=== PATIENT | female | born 1985 | race African-American/Black ===

== ENCOUNTER → 2016-08-13 | Outpatient (CLI) | payer OTHER ==
[2016-08-13 14:00] LABS: BASO % 0.2 % (0.0-1.0); EOS # 0.1 K/mm3 (0.0-0.50); LARGE UNSTAINED CELL # 0.1 K/mm3 (0.0-0.4); LARGE UNSTAINED CELL % 1.8 % (0.0-4.0); LYMPH # 1.6 K/mm3 (1.5-6.5); LYMPH % 20.3 % (24.0-44.0); MEAN CORPUSCULAR HEMOGLOBIN 24.9 pg (27.0-33.0); MEAN CORPUSCULAR HGB CONC 30.8 g/dl (32.0-36.5); MEAN CORPUSCULAR VOLUME 80.9 fl (80.0-96.0); MONO # 0.4 K/mm3 (0.0-0.8); MONO % 5.2 % (0.0-5.0); NEUTROPHILS # 5.5 K/mm3 (1.8-7.7); NEUTROPHILS % 71.5 % (36.0-66.0); PLATELET COUNT, AUTOMATED 201 k/mm3 (150-450); RED CELL DISTRIBUTION WIDTH 12.8 % (11.5-14.5); WHITE BLOOD COUNT 7.6 K/mm3 (4.0-10.0)
== END ==
LOC: M SMT 10:56
PROVIDERS: ATTEND Advanced Practice Midwife
DX: Z34.83 Encounter for supervision of other normal pregnancy, third trimester (principal); Z36 Encounter for antenatal screening of mother; Z3A.00 Weeks of gestation of pregnancy not specified

== ENCOUNTER → 2016-08-27 | Outpatient (REF) | payer OTHER | LOC: M LAB REF 12:51 | PROVIDERS: ATTEND Advanced Practice Midwife | DX: Z34.03 Encounter for supervision of normal first pregnancy, third trimester (principal) ==

== ENCOUNTER 2016-09-15 15:38 | Inpatient (IN) | payer OTHER ==
[~2016-09-15] VITALS: Ht 165.1 cm; Wt 99.0 kg
[2016-09-15] VITALS (10 sets, daily range): BP systolic 114–143; BP diastolic 68–91
--- NOTE | 2016-09-15 16:40 | HPE ---
DATE OF ADMISSION: 09/15/2016 Maryann is a 31-year-old, 2, para 0-0-1-0, at 39 weeks gestation, with an estimated date of confinement (EDC) of 09/22/2016, based on last normal period and confirmed by first trimester ultrasound. She presents to labor and delivery today per consult with Dr. Jamin Parish for induction of labor due to preeclampsia. She denies regular contractions. She denies vaginal bleeding and leakage of fluid. The fetus is active. She denies headache, visual disturbances, epigastric pain, and right upper quadrant discomfort. care was initiated at [facility] in the first trimester. course complicated with diagnosis of preeclampsia. She had two elevated blood pressures within the same week, at least 4 hours apart, that were abnormal. She underwent a preeclamptic profile and CBC. Her uric acid is elevated at 6.6 and a 24-hour urine for protein at 492.7. Liver enzymes are normal. Hemoglobin, hematocrit, and platelets are in normal range. OBSTETRICAL HISTORY: March 2014 she had a spontaneous . OBSTETRICAL LABORATORY DATA: Blood type is O positive, antibody screen negative, Rubella immune, VDRL is nonreactive. Urine culture no growth. Hepatitis B surface antigen negative. HIV negative. Hepatitis C antibody nonreactive. She had a positive chlamydia that was treated and then a [id number] on 03/24/2016 that was negative. Gestational diabetic screening normal at 120. Her GBS is negative. She also underwent a hemoglobin electrophoresis and was found to have normal adult hemoglobin due to family history of sickle cell. SURGERIES: None. FAMILY HISTORY: Hypertension, sickle cell, mental retardation. SOCIAL HISTORY: The patient is . The father of the baby is at bedside and supportive. She is a nonsmoker. Denies alcohol and drug use. 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 She did not, however, start prophylactic antivirals, however denies any signs or symptoms of an outbreak and it has been over a year since an outbreak. She does have a history of childhood varicella. Denies history of abuse, physical, sexual, and emotional. ALLERGIES: No known drug allergies. CURRENT MEDICATIONS: Include: - vitamin OBJECTIVE: Temperature 98, pulse 80, respirations 20, blood pressure 133/86 upon arrival to labor and delivery. She is alert and oriented times three, in no apparent distress. heart rate is 140 with moderate variability, positive accelerations, there is an occasional variable deceleration observed. There is no pattern of regular contractions. Her abdomen is gravid, cephalic presentation, estimated weight is 7-1/2 pounds. Sterile vaginal exam: Finger tip dilated, thick, -3 station, posterior and soft. No bloody show with exam. The patient has a difficult time tolerating vaginal exam, reports a history of always having difficulties and discomfort with vaginal exams and intercourse. She does have a trace protein in her urine dip upon presentation to labor and delivery as well today. Of note I did examine the patient, there is no signs or symptoms of a HSV-2 outbreak. No lesions seen or observed. ASSESSMENT: Intrauterine at 39 weeks gestation. heart rate category 2. Preeclampsia. PLAN: Per consult with Dr. Jamin Parish, admit patient to labor and delivery. Labs, including repeat preeclamptic profile. Out of bed ad abdelrahman. Saline lock. Start misoprostol 50 mcg by mouth every 4 hours for cervical ripening. The patient does desire an epidural when she is in an active labor. I did review risks related to induction of labor, including, but not limited to, failed induction, increased risk for section, intolerance to labor. All of the patient and her 's questions have been answered and they do understand and desire to proceed with induction. I do anticipate cervical ripening. Will consider Huber bulb insertion if patient can tolerate procedure. GORDY
[2016-09-15] MEDS: miSOPROStol 50 MCG 1/2 TAB (S0191) PO SCH ×2 (16:57→21:14)
[2016-09-15 16:59] LABS: MEAN CORPUSCULAR HEMOGLOBIN 23.7 pg (27.0-33.0); MEAN CORPUSCULAR HGB CONC 30.7 g/dl (32.0-36.5); MEAN CORPUSCULAR VOLUME 77.4 fl (80.0-96.0); RED CELL DISTRIBUTION WIDTH 14.2 % (11.5-14.5); WHITE BLOOD COUNT 6.3 K/mm3 (4.0-10.0)
[2016-09-15 17:21] LABS: ALT/SGPT 19 U/L (12-78); AST/SGOT 21 U/L (15-37); BILIRUBIN,TOTAL 0.2 MG/DL (0.2-1.0); CREATININE FOR GFR 0.78 MG/DL (0.55-1.02); GLOMERULAR FILTRATION RATE > 60.0 (>60); URIC ACID 6.2 MG/DL (2.6-6.0)
[2016-09-15] MEDS ORDERED: diphenhydrAMINE 50 MG CAP PO ONE (22:00)
[2016-09-16] VITALS (49 sets, daily range): BP systolic 102–152; BP diastolic 55–98
[2016-09-16] MEDS: miSOPROStol 50 MCG 1/2 TAB (S0191) PO SCH ×2 (01:23→05:26)
[2016-09-16] MEDS ORDERED: OXYTOCIN 30 UNITS IN 0.9% NaCl 500ML IV BAG (J2590) As Ordered ONE (10:01)
[2016-09-16] MEDS: LR 1,000 ML IV SCH ×2 (10:10→18:14)
[2016-09-16] MEDS: OXYTOCIN DRIP 30 UNITS in APPROPRIATE DILUENT 1 EA IV SCH (10:10)
[2016-09-16 18:29] LABS: MEAN CORPUSCULAR HGB CONC 30.5 g/dl (32.0-36.5); MEAN CORPUSCULAR VOLUME 78.4 fl (80.0-96.0); RED CELL DISTRIBUTION WIDTH 14.3 % (11.5-14.5)
[2016-09-16] MEDS ORDERED: FENTANYL 2MCG/ML ROPIVACAINE 0.2% IN 0.9% NACL 200ML IVBAG As Ordered ONE (19:13)
[2016-09-16] MEDS ORDERED: REFRIGERATOR IV KEYS XX PRN (20:00)
[2016-09-16] MEDS ORDERED: ONDANSETRON 4MG/2ML VIAL (J2405) IV PRN (20:00)
[2016-09-16] MEDS ORDERED: LACTATED RINGER'S 1000 ML IV PRN (20:00)
[2016-09-16] MEDS ORDERED: EPIDURAL/PCA KEYS XX PRN (20:00)
[2016-09-16] MEDS ORDERED: diphenhydrAMINE INJ 50MG/ML VIAL (J1200) IV PRN (20:00)
[2016-09-16] MEDS ORDERED: NALOXONE INJ 0.4 MG/1 ML VIAL (J2310) IV PRN (20:00)
[2016-09-16] MEDS ORDERED: EPIDURAL COMMENT XX SCH (20:00)
[2016-09-16] MEDS ORDERED: FENTANYL/ROPIVACAINE/NACL BAG 200 ML EPIDURAL SCH (20:00)
[2016-09-16] MEDS ORDERED: ePHEDrine SULFATE 25 MG/5 ML(5MG/ML) SYRINGE IV PRN (20:00)
[2016-09-17] VITALS (70 sets, daily range): BP systolic 107–171; BP diastolic 53–83
[2016-09-17] MEDS: LR 1,000 ML IV SCH ×3 (01:59→17:44)
[2016-09-17] MEDS ORDERED: ACETAMINOPHEN 500 MG TAB PO PRN (08:00)
[2016-09-17] MEDS ORDERED: ADACEL/BOOSTRIX VACCINE (DIPHTH/PERTUSS/ACELL/TETANUS)0.5ML SYR (90715) IM ONE (09:00)
[2016-09-17] MEDS ORDERED: OXYTOCIN 30 UNITS IN 0.9% NaCl 500ML IV BAG (J2590) As Ordered ONE (14:33)
[2016-09-17] MEDS: OXYTOCIN DRIP 30 UNITS in APPROPRIATE DILUENT 1 EA IV SCH (14:36)
[2016-09-17] MEDS ORDERED: LACTATED RINGER'S 1000 ML IV STA (16:02)
[2016-09-17] MEDS ORDERED: UNASYN 3 GM VIAL As Ordered ONE (16:02)
[2016-09-17] MEDS ORDERED: BICITRA 30ML SOLN UDC PO ONE (16:15)
[2016-09-17] MEDS ORDERED: AMPICILLIN SOD/SULBACTAM SOD 3 GM in D5W MINI-BAG PLUS 100 ML IV ONE (16:15)
[2016-09-17] MEDS ORDERED: LIDOCAINE 2% W/EPIN INJ 20ML **PRES FREE As Ordered ONE (16:41)
[2016-09-17] MEDS ORDERED: OXYTOCIN INJ 10 UNITS/ML VIAL (J2590) As Ordered ONE ×4 (16:41→17:21)
[2016-09-17] MEDS ORDERED: MORPHINE PRES-FREE INJ 10 MG/10 ML VIAL (J2274) As Ordered ONE (16:55)
[2016-09-17] MEDS ORDERED: KETOROLAC 60 MG/2 ML VIAL (J1885) As Ordered ONE (16:57)
[2016-09-17] MEDS ORDERED: NALBUPHINE HCL 10 MG/ML AMP (J2300) IV PRN ×2 (17:00→18:15)
[2016-09-17] MEDS ORDERED: NALOXONE INJ 0.4 MG/1 ML VIAL (J2310) IV PRN ×2 (17:00)
[2016-09-17] MEDS ORDERED: METOCLOPRAMIDE INJ 10MG/2ML VIAL (J2765) IV PRN (17:00)
[2016-09-17] MEDS ORDERED: ONDANSETRON 4MG/2ML VIAL (J2405) IV PRN ×3 (17:00→18:15)
[2016-09-17] MEDS ORDERED: MEPERIDINE 50 MG/ML 1ML VIAL (J2175) As Ordered ONE (17:01)
[2016-09-17 17:09] LABS: CORD GAS ABE V -4.9; CORD GAS HCO3 V 20.7 MEQ/L; CORD GAS PCO2 V 40.2 mmHg; CORD GAS PH V 7.329 UNITS; CORD GAS PO2 V 29.7 mmHg; CORD GAS SBC V 19.8 MEQ/L; CORD GAS TCO2 V 21.9 MEQ/L
[2016-09-17 17:11] LABS: CORD GAS ABE A -6.1; CORD GAS HCO3 A 21.5 MEQ/L; CORD GAS O2 SAT A 20.2 %; CORD GAS PCO2 A 50.2 mmHg; CORD GAS PH A 7.25 UNITS; CORD GAS SBC A 17.8 MEQ/L; CORD GAS TCO2 A 23.1 MEQ/L
[2016-09-17] MEDS ORDERED: OXYTOCIN DRIP 30 UNITS in APPROPRIATE DILUENT 1 EA IV SCH (17:44)
[2016-09-17] MEDS ORDERED: RHOGAM 300 MCG (1500 IU) INJ (J2790) IM SCH (17:45)
[2016-09-17] MEDS ORDERED: MEASLES,MUMPS,RUBELLA VACCINE INJ (MMR-II) (90707) SC SCH (17:45)
[2016-09-17] MEDS ORDERED: PROMETHAZINE 25 MG TAB PO PRN (17:45)
[2016-09-17] MEDS ORDERED: LR 1,000 ML IV SCH (18:15)
[2016-09-17] MEDS ORDERED: MEPERIDINE INJ 25 MG/ML VIAL (J2175) IV PRN (18:15)
[2016-09-17] MEDS ORDERED: HYDROmorphone HCL 1 MG/ML SYRINGE (J1170) IV PRN (18:15)
[2016-09-17] MEDS ORDERED: PERCOCET 5MG/325MG TAB PO PRN (18:15)
[2016-09-17] MEDS ORDERED: fentaNYL 100 MCG/2 ML INJECTION (J3010) IV PRN (18:15)
[2016-09-17] MEDS: PERCOCET 5MG/325MG TAB PO PRN (19:03)
[2016-09-17] MEDS: DOCUSATE SODIUM 100 MG CAP PO SCH (20:49)
[2016-09-17] MEDS: AMPICILLIN SOD/SULBACTAM SOD 3 GM in D5W MINI-BAG PLUS 100 ML IV SCH (22:02)
[2016-09-17] MEDS: KETOROLAC 30 MG/ML VIAL (J1885) IV SCH (22:57)
[2016-09-18] VITALS (9 sets, daily range): BP systolic 119–171; BP diastolic 62–97
[2016-09-18] MEDS: LR 1,000 ML IV SCH ×3 (01:44→17:44)
[2016-09-18] MEDS: AMPICILLIN SOD/SULBACTAM SOD 3 GM in D5W MINI-BAG PLUS 100 ML IV SCH ×4 (04:36→22:26)
[2016-09-18] MEDS: KETOROLAC 30 MG/ML VIAL (J1885) IV SCH ×3 (04:54→16:12)
[2016-09-18 07:18] LABS: MEAN CORPUSCULAR HEMOGLOBIN 24.2 pg (27.0-33.0); MEAN CORPUSCULAR HGB CONC 31.2 g/dl (32.0-36.5); MEAN CORPUSCULAR VOLUME 77.4 fl (80.0-96.0); RED CELL DISTRIBUTION WIDTH 14.5 % (11.5-14.5)
[2016-09-18] MEDS: PRENATAL VITAMIN TAB PO SCH (07:31)
[2016-09-18] MEDS: DOCUSATE SODIUM 100 MG CAP PO SCH ×2 (07:32→19:44)
[2016-09-18] MEDS: PERCOCET 5MG/325MG TAB PO PRN ×2 (07:38→19:44)
[2016-09-19] MEDS: IBUPROFEN 800 MG TAB PO SCH ×3 (00:40→16:30)
[2016-09-19 01:00] VITALS: BP 141/88
[2016-09-19] MEDS: LR 1,000 ML IV SCH ×2 (01:44→08:16)
[2016-09-19] MEDS: AMPICILLIN SOD/SULBACTAM SOD 3 GM in D5W MINI-BAG PLUS 100 ML IV SCH ×4 (04:29→21:39)
[2016-09-19] MEDS: PERCOCET 5MG/325MG TAB PO PRN ×2 (04:30→14:38)
[2016-09-19 05:40] VITALS: BP 124/69
[2016-09-19] MEDS: DOCUSATE SODIUM 100 MG CAP PO SCH ×2 (08:15→21:39)
[2016-09-19] MEDS: PRENATAL VITAMIN TAB PO SCH (08:15)
[2016-09-19] MEDS ORDERED: IBUP600T26 PO (09:28)
[2016-09-19] MEDS ORDERED: COLA100C3 PO (09:29)
[2016-09-19] MEDS ORDERED: OXYC1TAB23 PO (09:30)
[2016-09-19 18:18] VITALS: BP 142/72
[2016-09-20] MEDS: IBUPROFEN 800 MG TAB PO SCH ×2 (02:37→09:00)
[2016-09-20] MEDS: AMPICILLIN SOD/SULBACTAM SOD 3 GM in D5W MINI-BAG PLUS 100 ML IV SCH (04:35)
[2016-09-20 06:00] VITALS: BP 144/83
--- NOTE | 2016-09-20 08:42 | DSES ---
DATE OF ADMISSION: 09/15/2016 DATE OF DISCHARGE: HISTORY: 31-year-old, 2, para 0 female at 39 weeks gestation who was admitted for labor induction due to diagnosis of preeclampsia. HOSPITALIZATION COURSE: On 09/15/2016, the patient was admitted for labor induction. At the start of induction, her cervix was closed. Induction was a slow process. She initially progressed to become an anterior rim. However, she developed fever intrapartum to 101.6. During the second stage of labor, she also developed heart rate decelerations, including late decelerations. After failing to progress any further, the patient was diagnosed with arrest of decent. Decision was made to perform a section. On 09/17/2016, the patient underwent primary low transverse section for a 6 pound 15 ounce infant. There were no surgical complications. Due to the intraoperative diagnosis of chorioamnionitis, the patient was kept on IV antibiotics. The infant was observed per protocol in the intensive care unit (NICU). Her postoperative hemoglobin was 7.4 grams/dL. She denied symptoms of anemia. On postoperative day #3, she was deemed stable for discharge. ADMISSION DIAGNOSES: 1. at 39 weeks. 2. Preeclampsia. DISCHARGE DIAGNOSES: 1. Delivered. 2. Chorioamnionitis. PROCEDURE: Primary low transverse section. DISPOSITION: The patient will followup with [facility] in 2 weeks. Instructions reviewed.
[2016-09-20] MEDS: PRENATAL VITAMIN TAB PO SCH (08:59)
[2016-09-20] MEDS: DOCUSATE SODIUM 100 MG CAP PO SCH (08:59)
[2016-09-20] MEDS ORDERED: COLA100C3 PO (09:22)
[2016-09-20] MEDS ORDERED: OXYC1TAB23 PO (09:23)
[2016-09-20] MEDS ORDERED: IBUP-1114 PO (09:23)
== END 2016-09-20 11:15 | disposition home or self-care (01) | DRG 765 ==
LOC: M LDI 15:38 → M OBS 09-17 19:45
PROVIDERS: ADMIT Advanced Practice Midwife; ATTEND Obstetrics & Gynecology
PROC: 3E0P7GC Introduction of Other Therapeutic Substance into Female Reproductive, Via Natural or Artificial Opening (ICD-10-PCS; 2016-09-15)
PROC: 10907ZC Drainage of Amniotic Fluid, Therapeutic from Products of Conception, Via Natural or Artificial Opening (ICD-10-PCS; 2016-09-16)
PROC: 10D00Z1 Extraction of Products of Conception, Low, Open Approach (ICD-10-PCS; principal; 2016-09-17 16:41)
DX: O14.94 Unspecified pre-eclampsia, complicating childbirth (principal); O41.1230 Chorioamnionitis, third trimester, not applicable or unspecified; Z3A.39 39 weeks gestation of pregnancy; O32.4XX0 Maternal care for high head at term, not applicable or unspecified; O62.8 Other abnormalities of forces of labor; O76 Abnormality in fetal heart rate and rhythm complicating labor and delivery; Z37.0 Single live birth